=== PATIENT | female | born 1990 | race Caucasian/White ===

== ENCOUNTER 2019-04-16 18:00 | Emergency (ER) | payer BC ==
[2019-04-16 18:24] VITALS: BP 126/86; PULSE 85; TEMP 98.1; BMI 22.8
[2019-04-16] MEDS ORDERED: FAMOTIDINE 20 MG TABLET PO ONE (18:34)
[2019-04-16] MEDS ORDERED: FAMOTIDINE 20 MG TABLET ONE (18:38)
--- NOTE | 2019-04-16 18:40 | PDOC ---
History of Present Illness - General Chief Complaint: Hives Stated Complaint: HIVES Time Seen by Provider: 04/16/19 18:06 - History of Present Illness Initial Comments: 04/16/19 18:34 HPI: 29 y/o F with no pmh presenting with urticaria and pruritis that started 1-2 hours ago with no inciting factor. She reports she has been having episodes of hives with itching that started 3 months ago and has been increasing in frequency. She has episodes every few days now. The hives started on the back and trunk and spread to BL LEs. She also reports facial flushing and some LH that self resolved. She took 50mg benadryl today and it appeared to improve her symptoms significantly. She denies fever, chills, SOB, lip/tongue/throat swelling, chest pain, palpitations, abd pain, n/v, diarrhea, diaphoresis. She denies any clothing, scents, shampoos, perfumes, bedding, environmental exposure, recent travel, camping. She has a dog for several years without any issues and her smokes and has never illicited a reaction. Her father has anaphylaxis to bee stings. PMHx: as noted above ROS: as noted SHx: Denies tobacco use; no alcohol use; no rec drugs Allergies: NKDA ROS: GENERAL/CONSTITUTIONAL: No fever or chills. No weakness. HEAD, EYES, EARS, NOSE AND THROAT: No change in vision. No ear pain or discharge. No sore throat. CARDIOVASCULAR: No chest pain or shortness of breath RESPIRATORY: No cough, wheezing, or hemoptysis. GASTROINTESTINAL: No nausea, vomiting, diarrhea or constipation. GENITOURINARY: No dysuria, frequency, or change in urination. MUSCULOSKELETAL: No joint or muscle swelling or pain. No neck or back pain. SKIN: +rash NEUROLOGIC: No headache, vertigo, loss of consciousness, or change in strength/ sensation. ENDOCRINE: No increased thirst. No abnormal weight change HEMATOLOGIC/LYMPHATIC: No anemia, easy bleeding, or history of blood clots. ALLERGIC/IMMUNOLOGIC: No hives or skin allergy. PE: GENERAL: Awake, alert, and fully oriented, no acute distress HEAD: No signs of trauma, normocephalic, atraumatic EYES: EOMI, sclera anicteric, conjunctiva clear ENT: Auricles normal inspection, hearing grossly normal, nares patent, no angioedema of lips, tongue, posterior oropharynx, oropharynx clear without exudates. Moist mucosa NECK: Normal ROM, no lymphadenopathy LUNGS: No increased work of breathing, symmetrical chest rise, clear to auscultation bilaterally, no stridor, wheezes, crackles or rhonchi HEART: Regular rate and rhythm, normal S1 and S2, no murmurs, peripheral pulses 2+ and equal bilaterally. ABDOMEN: Soft, nondistended, nontender, normoactive bowel sounds. No guarding, no rebound. No masses. No CVAT EXTREMITIES: Normal inspection, Normal range of motion, no edema. No clubbing or cyanosis. NEUROLOGICAL: Cranial nerves II through XII grossly intact. Normal speech, normal gait, no focal sensorimotor deficits SKIN: Warm, Dry, normal turgor, no rashes or lesions noted Past History - Past Medical History Allergies/Adverse Reactions: Allergies Allergy/AdvReac Type Severity Reaction Status Date / Time [facility] Allergy Unknown Verified 04/16/19 18:10 Home Medications: Ambulatory Orders Dextroamphetamine/Amphetamine [Dextroamp-Amphet ER 20 mg Cap] 20 mg PO SUSA Dextroamphetamine/Amphetamine [Dextroamp-Amphet ER 30 mg Cap] 30 mg PO MOTUWETHFR 04/16/19 Diphenhydramine HCl [Benadryl -] 50 mg PO ONCE 04/16/19 Famotidine [Pepcid] 20 mg PO DAILY PRN #30 tablet MDD 20 04/16/19 COPD: No - Psycho Social/Smoking Cessation Hx Smoking History: Never smoked Hx Alcohol Use: Yes (SOCIAL) Drug/Substance Use Hx: No *Physical Exam - Vital Signs Last Vital Signs Temp Pulse Resp BP Pulse Ox 98.1 F 85 14 126/86 98 04/16/19 18:03 04/16/19 18:03 04/16/19 18:03 04/16/19 18:03 04/16/19 18:03 Medical Decision Making - Medical Decision Making 04/16/19 18:40 29 y/o F with no pmh presenting with urticaria and pruritis that started 1-2 hours ago with no inciting factor. VSS, AF. PE notable for uritacaria on right flank and back and abdomen and excoriation thapa. Given stability of patient and lack of airway, pulmonary, and abdominal symptoms, likely urticaria of unknown etiology. -pepcid -recommending f/u with her pcp or derm for engineering documentation specialist referrals -recommending keeping an allergy diary and to stay warm due to possible increased frequency due to weather -will sent script to pharmacy Discharge - Discharge Information Problems reviewed: Yes Clinical Impression/Diagnosis: Urticaria, Itching Condition: Improved Disposition: HOME - Additional Discharge Information Prescriptions: Famotidine [Pepcid] 20 mg PO DAILY PRN #30 tablet MDD 20 PRN Reason: For Itching - Follow up/Referral Referrals: Gala Hull MD [Primary Care Provider] - - Patient Discharge Instructions Patient Printed Discharge Instructions: DI for Hives Additional Instructions: Return to ED if concern of worsening symptoms including difficulty breathing, swelling of lips/tongue/throat, chest pain, fainting You may followup with your pcp or stave log ripsaw operator for engineering documentation specialist referral When symptoms present you may take 20mg of pepcid and 50mg benadryl as needed Recommending keeping an allergy diary in preparation of engineering documentation specialist appointment. Recommending dressing warm if concern for weather induced urticaria - Post Discharge Activity
--- NOTE | 2019-04-16 18:41 | PDOC ---
Attending Attestation - Resident Resident Name: Jeffrey Downs - ED Attending Attestation I have performed the following: I have examined & evaluated the patient, The case was reviewed & discussed with the resident, I agree w/resident's findings & plan, Exceptions are as noted - HPI HPI: 04/16/19 18:38 Recurrent urticaria trunk and extremities. Etiology uncertain. Response to Benadryl. No angioedema. Specifically, no present or prior swelling of the oropharynx or lips, no wheezing or chest tightness, no abdominal pain vomiting or diarrhea. Took Benadryl with some relief. There is less pruritus and less erythema now. More frequent exacerbations since it has been cold. - Physicial Exam PE: 04/16/19 18:40 Physical exam is normal with normal vital signs, except for mild diffuse urticaria of the trunk and extremities. Oropharynx and face are without swelling or edema. The lungs are clear with full breath sounds bilaterally, no wheezes rales or rhonchi. The abdomen is soft nontender without mass organomegaly. - Medical Decision Making 04/16/19 18:41 Assessment: Urticaria, idiopathic, or possibly related to the cold Plan: Symptomatic treatment with H1 and H2 blockers, pay per click strategist referral, return to ER immediately if signs of angioedema. Fully ambulatory and in no distress at discharge
== END 2019-04-16 18:55 | disposition home or self-care (01) ==
LOC: FER 18:00
DX: L50.1 Idiopathic urticaria (principal); Z88.1 Allergy status to other antibiotic agents
CPT/HCPCS: 99281-25